=== PATIENT | female | born 1980 | race African-American/Black ===

== ENCOUNTER 2019-03-18 05:33 | Day surgery (SDC) | payer OTHER ==
[2019-03-12 11:44] LABS: HEMATOCRIT 35.6 % (36.0-47.0); HEMOGLOBIN 11.7 g/dL (12.0-15.5); MEAN CORPUSCULAR HEMOGLOBIN 25.7 pg (27.0-33.4); MEAN CORPUSCULAR HGB CONC 32.9 g/dL (32.0-36.0); MEAN CORPUSCULAR VOLUME 78 fl (80-97); PLATELET COUNT 379 10^3/uL (150-450); RED BLOOD COUNT 4.55 10^6/uL (3.72-5.28); RED CELL DISTRIBUTION WIDTH 14.3 % (11.5-14.0); WHITE BLOOD COUNT 3.3 10^3/uL (4.0-10.5)
[2019-03-12 11:55] LABS: APPEARANCE,URINE SLIGHTLY-CLOUDY; BILIRUBIN,URINE NEGATIVE (NEGATIVE); COLOR,URINE YELLOW; GLUCOSE, URINE NEGATIVE (NEGATIVE); KETONES,URINE NEGATIVE (NEGATIVE); LEUKOCYTE ESTERASE,URINE NEGATIVE (NEGATIVE); NITRITE,URINE NEGATIVE (NEGATIVE); PROTEIN,URINE 30 mg/dL (NEGATIVE); URINE SPECIFIC GRAVITY 1.025
[2019-03-12 12:08] LABS: ALBUMIN 4.1 g/dL (3.5-5.0); ALKALINE PHOSPHATASE 36 U/L (38-126); ANION GAP 8 (5-19); ASPARTATE AMINO TRANSFERASE 23 U/L (14-36); BILIRUBIN,TOTAL 0.5 mg/dL (0.2-1.3); BLOOD UREA NITROGEN 15 mg/dL (7-20); CALCIUM 9.7 mg/dL (8.4-10.2); CARBON DIOXIDE 29 mmol/L (22-30); CHLORIDE 105 mmol/L (98-107); GLUCOSE 80 mg/dL (75-110); POTASSIUM 4.3 mmol/L (3.6-5.0)
[~2019-03-18 05:33] MED LIST: CEFAZOLIN SODIUM 2 GM in DEXTROSE 5%-WATER 100 ML IV PRN; LACTATED RINGERS 1000 ML IV PRN; LIDOCAINE 0.5% INJ-PF (5 MG/ML) 50 ML SDV SUBCUT PRN
[2019-03-18] MEDS ORDERED: MIDAZOLAM 2 MG/2 ML INJ ONE (06:51)
[2019-03-18] MEDS ORDERED: HYDROMORPHONE HCL INJ/PF 2 MG/ML AMPULE ONE (06:51)
[2019-03-18] MEDS ORDERED: FENTANYL CITRATE INJ/PF 250 MCG/5 ML AMPULE ONE (06:51)
[2019-03-18] MEDS ORDERED: PROPOFOL INJ 200 MG/20 ML VIAL IV ONE (06:52)
[2019-03-18] MEDS ORDERED: PROMETHAZINE HCL INJ 25 MG/1 ML VIAL ONE (07:07)
[2019-03-18] MEDS ORDERED: FENTANYL CITRATE INJ/PF 100 MCG/2 ML AMPUL IV PRN ×3 (08:03)
[2019-03-18] MEDS ORDERED: PROMETHAZINE HCL INJ 25 MG/1 ML VIAL IV PRN ×3 (08:03→10:07)
[2019-03-18] MEDS ORDERED: DIPHENHYDRAMINE HCL 50 MG/ML VIAL IV PRN (08:03)
[2019-03-18] MEDS ORDERED: MEPERIDINE HCL/PF INJ 25 MG/1 ML DISP.SYRIN IV PRN (08:03)
[2019-03-18] MEDS ORDERED: MORPHINE SULFATE 10 MG/ML INJ IV PRN (08:03)
[2019-03-18] MEDS ORDERED: OXYCODONE-ACETAMINOPHEN 5-325 MG TABLET PO PRN (10:07)
[2019-03-18] MEDS ORDERED: HYDROMORPHONE HCL INJ/PF 2 MG/ML AMPULE IV PRN (10:07)
[2019-03-18] MEDS ORDERED: SIMETHICONE 80 MG TAB.CHEW PO PRN (10:07)
[2019-03-18] MEDS ORDERED: ACETAMINOPHEN 1,000 MG/100 ML RTUPB IV PRN (10:07)
[2019-03-18] MEDS ORDERED: ACETAMINOPHEN 325 MG TABLET PO PRN (10:07)
--- NOTE | 2019-03-18 10:24 | Operative Report ---
Operative Report DATE OF SURGERY: 03/18/19 PREOPERATIVE DIAGNOSIS: Fibroid uterus with menorrhagia POSTOPERATIVE DIAGNOSIS: Same OPERATION: Robotic hysterectomy SURGEON: LUCIANO MURILLO ANESTHESIA: GA TISSUE REMOVED OR ALTERED: Uterus COMPLICATIONS: None ESTIMATED BLOOD LOSS: 125 cc INTRAOPERATIVE FINDINGS: Fibroid uterus, normal-appearing tubes and ovaries PROCEDURE: Patient was taken back to the OR and placed in supine position. General anesthesia was induced. She was placed in dorsolithotomy position using Jamie stirrups. Her abdomen vagina perineum were prepared and draped in sterile fashion. A weighted speculum was placed in the vagina and cervix was grasped with a tenaculum. It was sounded to 8 cm. A suture of 0 Vicryl was placed at the anterior cervix. The cervix was gently dilated allowing the placement of the V care uterine manipulator. The large cup was used. An incision was made at the umbilicus and natural umbilical defect was identified and dilated with Minnie clamp allowing a blunt port to be placed. Laparoscopy confirmed appropriate placement. The abdomen was insufflated with CO2 gas. The lateral ports were then placed under laparoscopic visualization as well as a right lower quadrant port for insufflation. The patient was placed in steep Trendelenburg position and the robot was brought to the table and docked. View of the pelvis was good. The patient wished that her ovaries and tubes be left in place as long as it appeared normal. They did appear normal. Next the utero-ovarian pedicle was cauterized with bipolar cautery and cut with monopolar cautery bilaterally. The starting to work on the left side round ligament was cauterized with bipolar cautery and cut with monopolar bea the broad ligament as well was cauterized with bipolar cautery and cut with monopolar bea. The anterior leaf the broad ligament was incised creating a bladder flap. Likewise working on the right side the round ligament was cauterized bipolar cautery and cut with monopolar bea. The broad ligament also was cauterized with bipolar cautery and cut with monopolar bea. The bladder flap was developed as well on the right side. Staying directly next to the uterine cervix the uterine arteries were then cauterized with bipolar cautery and cut with monopolar bea bilaterally. The cardinal ligaments also cauterized with bipolar cautery and cut with monopolar bea. Upon reaching the V care cup a circumferential incision was made around the vaginal cuff using the monopolar bea. The uterus was removed through the vagina. Next the monopolar bea were exchanged for a needle funeral limousine driver. The vaginal cuff was closed with a V lock suture starting at the right side of the cuff and moving to the left side of the cuff. At the right side of the cuff anterior vaginal mucosa lateral vaginal sidewall and posterior vaginal mucosa were grasped in the suture. The suture was then threaded through the loop and pulled tight. The cuff was then closed incorporating anterior vaginal coasted to posterior vaginal mucosa and upon reaching the left angle anterior vaginal mucosa lateral vaginal sidewall and posterior vaginal mucosa. Several sutures were taken back medially. The cuff was closed and appeared to be hemostatic. The pelvis was then irrigated with saline and fluid suctioned free. No active bleeding was seen at any of the pedicles. The ureters were identified bilaterally and were small and peristalsing. The robot was then undocked from the patient. The pelvis was once again inspected laparoscopically and no active bleeding was noted. Some FloSeal was placed at the vaginal cuff. The ports were removed under laparoscopic visualization. The gas was allowed to escape and the umbilical scope and port were removed at the same time. The fascia at the right lower quadrant incision and the umbilicus were closed with a 2-0 Vicryl stitch and skin closed with a 4-0 undyed Vicryl stitch at all 4 sites. The patient was extubated in the OR and brought to recovery room in stable condition.
[2019-03-18] MEDS: FENTANYL CITRATE INJ/PF 100 MCG/2 ML AMPUL ONE ×2 (10:27→10:32)
[2019-03-18] MEDS ORDERED: NEOSTIGMINE METHYLSULFATE 10 MG/10 ML VIAL ONE (12:45)
[2019-03-18] MEDS ORDERED: GLYCOPYRROLATE 1 MG/5 ML VIAL ONE (12:45)
[2019-03-18] MEDS ORDERED: DEXAMETHASONE SOD PHOSPHATE INJ 4 MG/1 ML VIAL ONE (12:45)
[2019-03-18] MEDS ORDERED: ROCURONIUM BROMIDE INJ 50 MG/5 ML VIAL IV ONE (12:45)
[2019-03-18] MEDS ORDERED: KETOROLAC TROMETHAMINE 60 MG/2 ML SDV ONE (12:45)
[2019-03-18] MEDS ORDERED: ONDANSETRON HCL INJ/PF 4 MG/2 ML SDV ONE (12:45)
[2019-03-18] MEDS: RINGERS SOLUTION,LACTATED 1,000 ML IV PRN (14:54)
[2019-03-18 16:29] LABS: HEMATOCRIT 33.9 % (36.0-47.0); HEMOGLOBIN 11.3 g/dL (12.0-15.5); MEAN CORPUSCULAR HEMOGLOBIN 25.8 pg (27.0-33.4); MEAN CORPUSCULAR HGB CONC 33.3 g/dL (32.0-36.0); MEAN CORPUSCULAR VOLUME 78 fl (80-97); PLATELET COUNT 334 10^3/uL (150-450); RED BLOOD COUNT 4.37 10^6/uL (3.72-5.28); RED CELL DISTRIBUTION WIDTH 14.2 % (11.5-14.0); WHITE BLOOD COUNT 7.8 10^3/uL (4.0-10.5)
[2019-03-18] MEDS ORDERED: RINGERS SOLUTION,LACTATED 500 ML IV ONE (16:30)
[2019-03-18 16:44] LABS: ANION GAP 6 (5-19); BLOOD UREA NITROGEN 13 mg/dL (7-20); CALCIUM 8.9 mg/dL (8.4-10.2); CARBON DIOXIDE 25 mmol/L (22-30); CHLORIDE 103 mmol/L (98-107); GLUCOSE 110 mg/dL (75-110); POTASSIUM 4.3 mmol/L (3.6-5.0)
--- NOTE | 2019-03-18 16:51 | PDOC PROGRESS REPORT ---
Subjective Progress Note for:: 03/18/19 Subjective:: She is doing well tonight. Reason For Visit: D25.9 LEIOMYOMA OF UTERUS, UNSPE Physical Exam - Physical Exam Vital Signs: Temp Pulse Resp BP Pulse Ox 98.2 F 63 14 100/55 L 100 03/18/19 16:00 03/18/19 16:00 03/18/19 16:00 03/18/19 16:00 03/18/19 16:00 Intake & Output 03/17/19 03/18/19 03/19/19 06:59 06:59 06:59 Intake Total 0 2520 Output Total 360 Balance 0 2160 Weight 60 kg General appearance: PRESENT: no acute distress, well-developed, well-nourished Result Laboratory Results: 03/17/19 03/18/19 18:15 15:53 Seg Neutrophils % Not Reportable Blood Type O POSITIVE Antibody Screen NEGATIVE Impressions: H/H looks good tonight. Assessment & Plan - Diagnosis (1) Fibroid uterus Qualifiers: Uterine leiomyoma location: intramural Qualified Code(s): D25.1 - Intramural leiomyoma of uterus Is this a current diagnosis for this admission?: Yes (2) Anemia Qualifiers: Iron deficiency anemia type: chronic blood loss Is this a current diagnosis for this admission?: Yes - Time Time Spent with patient: 15-24 minutes Medications reviewed and adjusted accordingly: Yes Anticipated discharge: Home Within: within 36 hours
[2019-03-18 17:01] LABS: ABSOLUTE LYMPHOCYTES# (MANUAL) 0.2 10^3/uL (0.5-4.7); ABSOLUTE MONOCYTES # (MANUAL) 0.1 10^3/uL (0.1-1.4); BASOPHILS % (MANUAL) 0 % (0-2); EOSINOPHILS % (MANUAL) 0 % (0-6); LYMPHOCYTES % (MANUAL) 2 % (13-45); MONOCYTES % (MANUAL) 1 % (3-13); SEGMENTED NEUTROPHILS % (MAN) 97 % (42-78); TOTAL CELLS COUNTED 100
[2019-03-18 17:02] LABS: ANISOCYTOSIS SLIGHT; PLATELET COMMENT ADEQUATE
[2019-03-18] MEDS: KETOROLAC TROMETHAMINE INJ/PF 30 MG/1 ML SDV IV SCH (17:18)
[2019-03-18] MEDS: DOCUSATE SODIUM 100 MG CAPSULE PO SCH (17:19)
[2019-03-18] MEDS: OXYCODONE-ACETAMINOPHEN 5-325 MG TABLET PO PRN (20:27)
[2019-03-19] MEDS: RINGERS SOLUTION,LACTATED 1,000 ML IV PRN (00:19)
[2019-03-19] MEDS: KETOROLAC TROMETHAMINE INJ/PF 30 MG/1 ML SDV IV SCH (02:02)
[2019-03-19 06:22] LABS: HEMATOCRIT 29.8 % (36.0-47.0); MEAN CORPUSCULAR HGB CONC 33.5 g/dL (32.0-36.0); MEAN CORPUSCULAR VOLUME 78 fl (80-97); PLATELET COUNT 290 10^3/uL (150-450); RED BLOOD COUNT 3.84 10^6/uL (3.72-5.28); RED CELL DISTRIBUTION WIDTH 14.3 % (11.5-14.0); WHITE BLOOD COUNT 6.9 10^3/uL (4.0-10.5)
[2019-03-19] MEDS: OXYCODONE-ACETAMINOPHEN 5-325 MG TABLET PO PRN (07:30)
--- NOTE | 2019-03-19 08:11 | PDOC DISCHARGE SUMMARY ---
Impression - Admit/DC Date/PCP Admission Date/Primary Care Provider: [facility] Discharge Date: 03/19/19 - Discharge Diagnosis (1) Fibroid uterus Is this a current diagnosis for this admission?: Yes (2) Anemia Is this a current diagnosis for this admission?: Yes - Assessment Summary: She was admitted for a robotic hysterectomy. Please see op report. She did well through the night and wishes to go home today. Her followup is on the . Percocet for pain control. No driving or heavy lifting. - Additional Information Resuscitation Status: Full Code Discharge Diet: Regular Discharge Activity: Balance Activity w/Rest, Pelvic Rest Referrals: LUCIANO MURILLO MD [ACTIVE STAFF] - 03/25/19 10:00 am (PLEASE CALL THE OFFICE FOR ANY QUESTIONS OR CONCERN.) [facility] [Primary Care Provider] - Prescriptions: Oxycodone HCl/Acetaminophen [Percocet 5-325 mg Tablet] 1 tab PO Q4HP PRN #30 tablet PRN Reason: Home Medications: Cholecalciferol (Vitamin D3) [Vitamin D3] 1 cap PO DAILY 03/12/19 Prenat 115/Iron Fum/Folic/Dss [ 19 Tablet] 1 tab PO DAILY 03/12/19 Oxycodone HCl/Acetaminophen [Percocet 5-325 mg Tablet] 1 tab PO Q4HP PRN #30 tablet 03/19/19 History of Present Illiness History of Present Illness: SHITAL QUINTANILLA is a 38 year old female Physical Exam - Physical Exam Vital Signs: Temp Pulse Resp BP Pulse Ox 97.6 F 61 12 95/55 L 99 03/19/19 08:05 03/19/19 08:05 03/19/19 08:05 03/19/19 08:05 03/19/19 08:05 Intake & Output 03/18/19 03/19/19 03/20/19 06:59 06:59 06:59 Intake Total 0 4740 Output Total 1410 250 Balance 0 3330 -250 Weight 60 kg 60 kg Results Laboratory Results: WBC 6.9 10^3/uL (4.0-10.5) 03/19/19 06:12 RBC 3.84 10^6/uL (3.72-5.28) 03/19/19 06:12 Hgb 10.0 g/dL (12.0-15.5) L 03/19/19 06:12 Hct 29.8 % (36.0-47.0) L 03/19/19 06:12 MCV 78 fl (80-97) L 03/19/19 06:12 MCH 26.0 pg (27.0-33.4) L 03/19/19 06:12 MCHC 33.5 g/dL (32.0-36.0) 03/19/19 06:12 RDW 14.3 % (11.5-14.0) H 03/19/19 06:12 Plt Count 290 10^3/uL (150-450) 03/19/19 06:12 Lymph % (Auto) Not Reportable 03/18/19 15:53 [place] % (Auto) Not Reportable 03/18/19 15:53 Eos % (Auto) Not Reportable 03/18/19 15:53 Baso % (Auto) Not Reportable 03/18/19 15:53 Absolute Neuts (auto) Not Reportable 03/18/19 15:53 Absolute Lymphs (auto) Not Reportable 03/18/19 15:53 Absolute Monos (auto) Not Reportable 03/18/19 15:53 Absolute Eos (auto) Not Reportable 03/18/19 15:53 Absolute Basos (auto) Not Reportable 03/18/19 15:53 Total Counted 100 03/18/19 15:53 Seg Neutrophils % Not Reportable 03/18/19 15:53 Seg Neuts % (Manual) 97 % (42-78) H 03/18/19 15:53 Lymphocytes % (Manual) 2 % (13-45) L 03/18/19 15:53 Monocytes % (Manual) 1 % (3-13) L 03/18/19 15:53 Eosinophils % (Manual) 0 % (0-6) 03/18/19 15:53 Basophils % (Manual) 0 % (0-2) 03/18/19 15:53 Abs Neuts (Manual) 7.6 10^3/uL (1.7-8.2) 03/18/19 15:53 Abs Lymphs (Manual) 0.2 10^3/uL (0.5-4.7) L 03/18/19 15:53 Abs Monocytes (Manual) 0.1 10^3/uL (0.1-1.4) 03/18/19 15:53 Absolute Eos (Manual) 0.0 10^3/uL (0.0-0.6) 03/18/19 15:53 Abs Basophils (Manual) 0.0 10^3/uL (0.0-0.2) 03/18/19 15:53 Platelet Comment ADEQUATE 03/18/19 15:53 Anisocytosis SLIGHT 03/18/19 15:53 Sodium 134.2 mmol/L (137-145) L 03/18/19 15:53 Potassium 4.3 mmol/L (3.6-5.0) 03/18/19 15:53 Chloride 103 mmol/L (98-107) 03/18/19 15:53 Carbon Dioxide 25 mmol/L (22-30) 03/18/19 15:53 Anion Gap 6 (5-19) 03/18/19 15:53 BUN 13 mg/dL (7-20) 03/18/19 15:53 Creatinine 0.70 mg/dL (0.52-1.25) 03/18/19 15:53 Est GFR ( Amer) > 60 (>60) 03/18/19 15:53 Est GFR (MDRD) Non-Af > 60 (>60) 03/18/19 15:53 Glucose 110 mg/dL (75-110) 03/18/19 15:53 Calcium 8.9 mg/dL (8.4-10.2) 03/18/19 15:53 Total Bilirubin 0.5 mg/dL (0.2-1.3) 03/12/19 11:02 Direct Bilirubin 0.0 mg/dL (0.0-0.4) 03/12/19 11:02 Neonat Total Bilirubin Not Reportable 03/12/19 11:02 Neonat Direct Bilirubin Not Reportable 03/12/19 11:02 Neonat Indirect Bili Not Reportable 03/12/19 11:02 AST 23 U/L (14-36) 03/12/19 11:02 ALT 13 U/L (<35) 03/12/19 11:02 Alkaline Phosphatase 36 U/L (38-126) L 03/12/19 11:02 Total Protein 7.0 g/dL (6.3-8.2) 03/12/19 11:02 Albumin 4.1 g/dL (3.5-5.0) 03/12/19 11:02 Urine Color YELLOW 03/12/19 10:37 Urine Appearance SLIGHTLY-CLOUDY 03/12/19 10:37 Urine pH 6.0 (5.0-9.0) 03/12/19 10:37 Ur Specific [place] 1.025 03/12/19 10:37 Urine Protein 30 mg/dL (NEGATIVE) H 03/12/19 10:37 Urine Glucose (UA) NEGATIVE mg/dL (NEGATIVE) 03/12/19 10:37 Urine Ketones NEGATIVE mg/dL (NEGATIVE) 03/12/19 10:37 Urine Blood MODERATE (NEGATIVE) H 03/12/19 10:37 Urine Nitrite NEGATIVE (NEGATIVE) 03/12/19 10:37 Urine Bilirubin NEGATIVE (NEGATIVE) 03/12/19 10:37 Urine Urobilinogen 4.0 mg/dL (<2.0) H 03/12/19 10:37 Ur Leukocyte Esterase NEGATIVE (NEGATIVE) 03/12/19 10:37 Urine WBC (Auto) 1 /HPF 03/12/19 10:37 Urine RBC (Auto) 11 /HPF 03/12/19 10:37 Squamous Epi Cells Auto 1 /HPF 03/12/19 10:37 Urine Mucus (Auto) MANY /LPF 03/12/19 10:37 Urine Ascorbic Acid NEGATIVE (NEGATIVE) 03/12/19 10:37 Urine HCG, Qual NEGATIVE (NEGATIVE) 03/18/19 05:30 Blood Type O POSITIVE 03/17/19 18:15 Antibody Screen NEGATIVE 03/17/19 18:15 Stroke Is this a Stroke Patient?: No Acute Heart Failure - Is this a Heart Failure Patient?: No
[2019-03-19 09:26] VITALS: BP 100/55
[2019-03-19] MEDS: DOCUSATE SODIUM 100 MG CAPSULE PO SCH (09:34)
[2019-03-19] MEDS ORDERED: IBUPROFEN 800 MG TABLET PO SCH (12:00)
== END 2019-03-19 11:05 | disposition home or self-care (01) ==
LOC: OROUT 05:33 → 2S 11:20 → OROUT 03-19 11:05
PROVIDERS: ATTEND Obstetrics & Gynecology
DX: N88.8 Other specified noninflammatory disorders of cervix uteri (principal); N80.0 Endometriosis of uterus; D25.1 Intramural leiomyoma of uterus; D25.2 Subserosal leiomyoma of uterus; D64.9 Anemia, unspecified; Z87.891 Personal history of nicotine dependence
CPT/HCPCS: 58570; S2900; 36415; 80048; 80053; 81001; 81025; 840; 85025; 85027; 86850; 86900; 86901; 88307; 94799; J0131; J0690; J1100; J1170; J1885; J2250; J2405; J2550; J2704; J2710; J3010; J3490; J7060; J7120